=== PATIENT | female | born 1995 ===

== ENCOUNTER 2022-02-25 03:15 | Inpatient (IN) ==
[2022-02-25 04:00] LABS: Urine Appearance Clear (Clear); Urine Color Yellow (Yellow)
[2022-02-25 04:01] LABS: Bilirubin,Urine Negative (Negative); Blood, Urine Negative (Negative); Glucose,Urine (UA) Negative (Negative); Ketones,Urine Negative (Negative); Nitrite,Urine Negative (Negative); Protein,Urine Negative (Negative); Urine Specific Gravity 1.015 (1.001-1.035); Urine Urobilinogen 0.2 eU/dL (<2.0)
[2022-02-25 04:03] LABS: RBC,Urine <1 /HPF (0-4); Squamous Epithelial Cell,Urine Occasional /HPF (0-10)
[2022-02-25] MEDS ORDERED: miSOPROStoL 200 MCG TABLET RECTAL PRN (05:20)
[2022-02-25] MEDS ORDERED: METHYLERGONOVINE 0.2 MG/1 ML AMP IM PRN (05:20)
[2022-02-25] MEDS ORDERED: LACTATED RINGERS 500 ML IV PRN (05:20)
[2022-02-25] MEDS ORDERED: ONDANSETRON 4 MG/2 ML VIAL IV PRN (05:20)
[2022-02-25] MEDS ORDERED: CARBOPROST TROMETHAMINE 250 MCG/ML AMP IM PRN (05:20)
[2022-02-25] MEDS ORDERED: TRANEXAMIC ACID 1,000 MG in SODIUM CHLORIDE 0.9% 100 ML IV PRN (05:20)
[2022-02-25] MEDS ORDERED: LACTATED RINGERS 1,000 ML IV SCH (06:00)
[2022-02-25] MEDS ORDERED: LACTATED RINGERS 250 ML IV ONE (06:00)
[2022-02-25] MEDS ORDERED: OXYTOCIN/LR 20 UNIT/1,000 ML BAG IV ONE ×3 (06:00→18:03)
[2022-02-25] MEDS ORDERED: BUTORPHANOL 1 MG/ML VIAL IV PRN (06:36)
[2022-02-25 06:49] LABS: Basophils % 0.2 % (0.0-0.8); Eosinophils % 0.1 % (0.00-10.9); Hematocrit 36.2 VOL% (35.7-47.0); Hemoglobin 11.8 GM/DL (12.0-16.0); Immature Granulocytes % 0.6 %; Immature Granulocytes Absolute 0.09 #; Lymphocytes # 1.8 10*3/uL (1.4-4.0); Lymphocytes % 11.8 % (21.3-54.2); Mean Corpuscular HGB Conc 32.6 GM/DL (32-36); Mean Corpuscular Volume 88.1 FL (87-102); Mean Platelet Volume 10.2 FL (9.6-12.0); Monocytes # 0.8 10*3/uL (0.11-0.8); Monocytes % 5.3 % (1.7-12.7); Platelet Count 296 T/CUMM (130-400); Red Blood Count 4.11 MC/CUMM (3.8-5.5); Red Cell Distribution Width 14.7 % (9.3-17.3); White Blood Count 15.2 T/CUMM (4-12)
[2022-02-25] MEDS ORDERED: LACTATED RINGERS 1,000 ML IV ONE (08:19)
[2022-02-25] MEDS ORDERED: diphenhydrAMINE 50 MG/1 ML VIAL IV PRN ×2 (08:19)
[2022-02-25] MEDS ORDERED: FAMOTIDINE 20 MG/2 ML VIAL IV ONE (08:19)
[2022-02-25] MEDS ORDERED: NALOXONE 0.4 MG/ML VIAL IV PRN (08:19)
[2022-02-25] MEDS ORDERED: ePHEDrine 50 MG/ML VIAL IV PRN (08:19)
[2022-02-25] MEDS ORDERED: hydrOXYzine HCL 25 MG/1 ML VIAL IM PRN (08:19)
[2022-02-25] MEDS ORDERED: CITRIC ACID/SODIUM CITRATE 30 ML UDCUP PO ONE (08:19)
[2022-02-25] MEDS ORDERED: PROMETHAZINE 25 MG/1 ML VIAL IM ONE (08:19)
[2022-02-25] MEDS ORDERED: fentaNYL 2 MCG/ROPIV 0.2% EPID 100 ML EPIDURAL SCH (08:30)
[2022-02-25 11:40] LABS: Bacteria,Urine Occasional /HPF (Few); Mucus,Urine Occasional /LPF (Occasional); RBC,Urine 1 /HPF (0-4); Squamous Epithelial Cell,Urine Occasional /HPF (0-10)
[2022-02-25 11:45] LABS: Urine Appearance Clear (Clear); Urine Color Yellow (Yellow)
[2022-02-25 11:46] LABS: Glucose,Urine (UA) Negative (Negative); Ketones,Urine 15 mg/dL (Negative); Protein,Urine Negative (Negative)
[2022-02-25 11:47] LABS: Bilirubin,Urine Negative (Negative); Blood, Urine Trace mg/dL (Negative); Nitrite,Urine Negative (Negative); Urine Urobilinogen 0.2 eU/dL (<2.0)
[2022-02-25] MEDS ORDERED: miSOPROStoL 200 MCG TABLET ONE (15:09)
[2022-02-25] MEDS ORDERED: TRANEXAMIC ACID 1,000 MG/10 ML VIAL ONE (15:09)
[2022-02-25] MEDS ORDERED: METHYLERGONOVINE 0.2 MG/1 ML AMP ONE (15:09)
[2022-02-25] MEDS ORDERED: SODIUM CHLORIDE 0.9% 0 ML IV ONE (15:09)
[2022-02-25] MEDS ORDERED: CARBOPROST TROMETHAMINE 250 MCG/ML AMP IM ONE (15:10)
[2022-02-25 15:46] LABS: Cord Venous Blood HCO3 19.5 MMOL/L; Cord Venous Blood PCO2 50.8 MMHG
[2022-02-25 15:49] LABS: Cord Arterial Blood HCO3 17.5 MMOL/L
[2022-02-25] MEDS ORDERED: oxyCODONE/ACETAMINOPHEN 5-325 MG TABLET PO PRN ×2 (18:03)
[2022-02-25] MEDS ORDERED: WITCH HAZEL PADS 100/JAR TOP PRN (18:03)
[2022-02-25] MEDS ORDERED: HYDROCORTISONE 2.5% RECTAL CREAM 30 GM TUBE TOP PRN (18:03)
[2022-02-25] MEDS ORDERED: MEASLES/MUMPS/RUBELLA VACCINE 0.5 ML VIAL SUBCUT ONE (18:03)
[2022-02-25] MEDS ORDERED: DIPH/TET/ACEL PERT BOOSTER VACCINE 0.5 ML VIAL IM ONE (18:03)
[2022-02-25] MEDS ORDERED: RHO(D) IMMUNE GLOBULIN 300 MCG SYRINGE IM ONE (18:03)
[2022-02-25] MEDS ORDERED: BISACODYL 10 MG SUPP RECTAL PRN (18:03)
[2022-02-25] MEDS ORDERED: ACETAMINOPHEN 325 MG TABLET PO PRN (18:03)
[2022-02-25] MEDS ORDERED: BENZOCAINE 20%/MENTHOL 0.5% SPRAY 56 GM CAN TOP PRN (18:03)
[2022-02-25] MEDS ORDERED: LANOLIN 50% CREAM 0.3 OZ TUBE TOP PRN (18:03)
[2022-02-25] MEDS: DOCUSATE SODIUM 100 MG CAPSULE PO SCH (21:11)
[2022-02-25] MEDS: IBUPROFEN 800 MG TABLET PO PRN (23:59)
[2022-02-26 05:29] LABS: Basophils % 0.2 % (0.0-0.8); Eosinophils # 0.1 10*3/uL (0.0-0.87); Eosinophils % 0.3 % (0.00-10.9); Hemoglobin 10.4 GM/DL (12.0-16.0); Immature Granulocytes % 0.6 %; Immature Granulocytes Absolute 0.11 #; Lymphocytes % 16.8 % (21.3-54.2); Mean Corpuscular HGB Conc 32.5 GM/DL (32-36); Mean Corpuscular Volume 90.4 FL (87-102); Mean Platelet Volume 10.4 FL (9.6-12.0); Monocytes # 1.3 10*3/uL (0.11-0.8); Monocytes % 7.2 % (1.7-12.7); Neutrophils % 74.9 % (38.7-73.9); Platelet Count 262 T/CUMM (130-400); Red Blood Count 3.54 MC/CUMM (3.8-5.5); Red Cell Distribution Width 14.9 % (9.3-17.3); White Blood Count 17.6 T/CUMM (4-12)
[2022-02-26] MEDS ORDERED: FUROSEMIDE 40 MG/4 ML VIAL IV ONE ×2 (08:16→14:00)
[2022-02-26] MEDS: MULTIVITAMIN (PRENATAL) TABLET PO SCH (08:44)
[2022-02-26] MEDS: DOCUSATE SODIUM 100 MG CAPSULE PO SCH ×2 (08:44→20:07)
[2022-02-26] MEDS: IBUPROFEN 800 MG TABLET PO PRN (15:23)
[2022-02-27] MEDS ORDERED: FUROSEMIDE 20 MG TABLET PO SCH (09:30)
[2022-02-27] MEDS: MULTIVITAMIN (PRENATAL) TABLET PO SCH (09:37)
[2022-02-27] MEDS: DOCUSATE SODIUM 100 MG CAPSULE PO SCH (09:37)
[2022-02-27] MEDS: IBUPROFEN 800 MG TABLET PO PRN (10:03)
[2022-02-27] MEDS ORDERED: DIPH/TET/ACEL PERT BOOSTER VACCINE 0.5 ML VIAL IM ONE (10:30)
[2022-02-27 12:11] VITALS: BP 133/63
== END 2022-02-27 12:35 | disposition home or self-care (01) | DRG 807 ==
LOC: N.LDOUT 03:15 → N.LD 03:19 → N.OB 18:20
PROVIDERS: ADMIT Obstetrics & Gynecology; ATTEND Obstetrics & Gynecology